=== PATIENT | male | born 1965 | race Caucasian/White ===

== ENCOUNTER 2024-11-11 09:45 | Emergency (ER) | payer BC, SELFPAY ==
[2024-11-11 10:10] VITALS: BP 115/75; PULSE 106; RESP 20; TEMP 36.4; O2SAT 99; BMI 23.3
--- NOTE | 2024-11-11 10:14 | XR_ITS ---
Examination: CT abdomen and pelvis without contrast. Coronal 3-D reconstructions. Sagittal 2-D reconstructions. Date and time of exam:November 11, 2024 1021 hours Comparison 03/13/2012 INDICATIONS: Nausea vomiting severe beginning 4:00 AM this morning CTDI: vol (mGy): 7.16 DLP: (mGycm): 8 oh Technique: Axial images of the abdomen have been obtained, 3 mm slice thickness Intravenous contrast material has not been administered. Low dose protocols were performed. One or more of the following dose reduction techniques were used; automated exposure control, adjustment of the mA and/or KV according to patient size, use of iterative reconstruction technique. Findings: Wall thickening distal esophagus with small retrocardiac gastric hernia Splenomegaly AP dimension 14 cm No focal liver lesions No gallstones No pancreatic or adrenal mass No renal or ureteral calculi, no hydronephrosis Normal appendix Colonic diverticulosis Mild fluid distended small bowel loops Colonic diverticulosis, no diverticulitis Urinary bladder intact Mild thickening of the rectal wall IMPRESSION: Wall thickening distal esophagus, consider reflux esophagitis Mild splenomegaly Normal appendix Mild small bowel ileus versus enteritis Mild proctitis pattern
--- NOTE | 2024-11-11 10:15 | PD.EDRME ---
Rapid Medical Screening Exam [facility] Arrival date/time: 11/11/24 09:45 59-year-old male presents to the emergency department for complaint of nausea vomiting, diarrhea abdominal pain Chief Complaint: Abdominal Pain Time Seen by Provider: 11/11/24 10:03 Vital signs: Vital Signs Temperature 97.6 F 11/11/24 10:10 Pulse Rate 106 H 11/11/24 10:10 Respiratory Rate 20 11/11/24 10:10 Blood Pressure 115/75 11/11/24 10:10 Pulse Oximetry (%) 99 11/11/24 10:10 Oxygen Delivery Method Room Air 11/11/24 10:10
[2024-11-11 10:33] LABS: Basophils # (Auto) 0.1 Thou/mm3 (0.0-0.2); Basophils % (Auto) 0 % (0-2.5); Eosinophils % (Auto) 0 % (0-10); Hematocrit 51.7 % (41.0-53.0); Immature Granulocytes % (Auto) 1 % (0-0); Immature Granulocytes Auto 0.09 Thou/mm3 (0.00-0.00); Lymphocytes # (Auto) 0.2 Thou/mm3 (1.0-4.8); Lymphocytes % (Auto) 1 % (10-50); Mean Corpuscular HGB Conc 34.8 g/dl (31.0-37.0); Mean Corpuscular Hemoglobin 29.7 pg (25.0-35.0); Mean Corpuscular Volume 85 fL (80-100); Monocytes # (Auto) 0.6 Thou/mm3 (0.0-0.8); Monocytes % (Auto) 4 % (0-12); Neutrophils # (Auto) 14.2 Thou/mm3 (1.8-7.7); Neutrophils % (Auto) 94 % (37-80); Nucleated Red Blood Cell % 0 /100 WBC (0); Platelet Count 253 Thou/mm3 (140-440); RDW Standard Deviation 38.1 fL (35.1-43.9); Red Blood Count 6.07 Miln/mm3 (4.50-5.90); White Blood Count 15.1 Thou/mm3 (3.8-10.6)
[2024-11-11] MEDS: METOCLOPRAMIDE INJ 5 MG/ML VIAL 2 ML 10 MG IM (10:53)
[2024-11-11 10:54] LABS: Alanine Aminotransferase 16 U/L (10-49); Albumin, Serum 5.1 gm/dL (3.5-5.0); Alkaline Phosphatase 88 U/L (46-116); Anion Gap 14 (7-16); Aspartate Amino Transferase 23 U/L (0-34); BUN/Creatinine Ratio 13 Ratio (12-20); Bilirubin,Total 0.9 mg/dL (0.3-1.2); Blood Urea Nitrogen 17 mg/dL (9-23); Calcium 9.7 mg/dL (8.3-10.6); Calcium (Corrected) 9.7 mg/dL (8.5-10.1); Carbon Dioxide 23.4 mMol/L (20.0-31.0); Chloride 106 mMol/L (98-107); Creatinine (Component) 1.3 mg/dL (0.6-1.3); Estimated Creatinine Clearance 72.9 mL/min (>60); Globulin 2.6 gm/dL (2.3-3.5); Glucose 150 mg/dL (74-106); Lipase 53 U/L (12-53); Osmolality,Calculated 289 (275-295); Potassium 4.6 mMol/L (3.4-5.1); Sodium 143 mMol/L (136-145); Total Protein 7.7 gm/dL (5.7-8.2); eGFR > 60 See Note
[2024-11-11] MEDS: LOPERAMIDE 2 MG CAPSULE 4 MG PO (10:55)
[2024-11-11 11:21] LABS: Collection Type, Urine Clean Catch; Squamous Epithelial Cell,Urine 0 /hpf (0-5)
[2024-11-11 11:44] LABS: Bilirubin,Urine Negative (Negative); Blood,Urine Negative (Negative); Color,Urine Yellow (Lt Yel-Yel); Culture Indicated,Urine Not Indicated; Glucose, Urine Negative (Negative); Ketones,Urine Trace (Negative); Leukocyte Esterase,Urine Negative (Negative); Nitrite,Urine Negative (Negative); Protein,Urine 2+ (Neg - Trace); RBC,Urine 6 /hpf (0-3); Specific Gravity,Urine 1.036 (1.001-1.035); Urobilinogen,Urine Negative mg/dL (0.0-1.0); WBC,Urine 3 /hpf (0-5)
[2024-11-11 12:10] LABS: Clarity,Urine Hazy (Clear/Hazy)
[2024-11-11 13:45] VITALS: BP 119/78; PULSE 97; RESP 18; TEMP 37.6; O2SAT 98
--- NOTE | 2024-11-11 14:09 | PD.EDADULT ---
ED General RME/HPI General Chief complaint: Abdominal Pain Stated complaint: abdominal vomiting/diarrhea x5 Time Seen by Provider: 11/11/24 10:03 Arrival date/time: 11/11/24 09:45 CC: Nausea vomit diarrhea HPI ongoing since 4 AM this morning, continue patient is a 20+ episodes of yellow watery stool. Patient denies any antibiotics in last 3 to 6 months. Patient states she has had episodes of this prior to this. Patient has a esophageal reconstruction and has a history of a GI bleed in the past. Patient denies fever chills shortness of breath difficulty breathing headache RME / HPI RME / HPI narrative: 11/11/24 09:45 59-year-old male presents to the emergency department for complaint of nausea vomiting, diarrhea abdominal pain Related Data Home Medications ?Medication ?Instructions ?Recorded ?Confirmed quetiapine 100 mg tablet (Seroquel) 100 mg PO HS #0 tabs 01/09/15 08/07/22 pantoprazole 40 mg tablet,delayed 1 tab PO QPM 11/23/21 08/07/22 release simvastatin 10 mg tablet 1 tab PO HS 11/23/21 08/07/22 allopurinol 100 mg tablet 100 mg PO QPM gout 08/07/22 08/07/22 clorazepate dipotassium 15 mg 15 mg PO QPM 08/07/22 08/07/22 tablet melatonin 10 mg tablet 10 mg PO QPM 08/07/22 08/07/22 Previous Rx's ?Medication ?Instructions ?Recorded ciprofloxacin HCl 500 mg tablet 500 mg PO BID #10 tabs 11/11/24 (Cipro) metronidazole 500 mg tablet 500 mg PO BID 7 days #14 tabs 11/11/24 ondansetron 4 mg disintegrating 4 mg PO Q8H #10 tabs 11/11/24 tablet prochlorperazine maleate 10 mg 10 mg PO BID PRN nausea and 11/11/24 tablet (Compazine) vomiting #14 tabs Allergies Allergy/AdvReac Type Severity Reaction Status Date / Time NSAIDS (Non-Steroidal Allergy Unknown CAN'T HAVE Verified 11/11/24 09:48 Anti-Inflamma D/T STOMACH RECONSTRUCTIVE SURGERY Penicillins Allergy Unknown Verified 11/11/24 09:48 Sulfa (Sulfonamide Allergy Unknown Verified 11/11/24 09:48 Antibiotics) articaine Allergy Swelling Verified 11/11/24 09:48 of Lip/Tongue/Throat Review of Systems Review of Systems Systems Reviewed: All systems reviewed, normal except as documented ED Exam Narrative Physical exam: [General: In mild discomfort but not in any acute distress Head normocephalic HEENT: Within acceptable limits Neck is supple nontender Chest equal chest rise nontender to palpation Respiratory: Clear to auscultation no wheezes crackles or rubs CV: Rate rhythm is regular no murmurs rubs or clicks Abdomen is soft nontender no masses hyperactive positive bowel sounds all 4 quadrants Back: No CVA tenderness no spinous process tenderness from cervical spine thoracic and lumbar spine Skin: Intact no petechiae rash induration ulceration or crepitus Extremities: Moving all extremity against resistance cap refill less than 2 seconds neurosensory intact Neuro: Awake alert oriented x3 Glascow coma 15 no focal deficits] Course Course Course Narrative: Reassessment of this patient at 1451, the patient has had no diarrhea or nausea and vomiting since the last assessment. At this time the patient be loaded with a liter of fluid and then discharged with metoclopramide and Zofran. If is worsening of symptoms to return the emergency room immediately for further evaluation. Quality Measures none Orders Category Date Time Status Saline [Insert IV] NOW Care 11/11/24 14:[address] abdomen pelvis wo con Stat Exams 11/11/24 10:14 Completed CBC Stat Lab 11/11/24 10:20 Completed Comprehensive Metabolic Panel Stat Lab 11/11/24 10:20 Completed Lipase Stat Lab 11/11/24 10:20 Completed UA, C/S IF [Urinalysis, C/S if Indicated] Stat Lab 11/11/24 11:19 Completed Loperamide [Imodium] Med 11/11/24 10:14 Discontinued 4 mg PO X1 ONE Metoclopramide Inj [Reglan Inj] Med 11/11/24 10:14 Discontinued 10 mg IM X1 ONE Ondansetron Inj [Zofran Inj] Med 11/11/24 14:08 Discontinued 4 mg IV X1 ONE Sodium Chloride 0.9% 1000 ml [Ns] 1,000 ml Med 11/11/24 14:05 Active IV 999 mls/hr Vital Signs Vital signs: Vital Signs Temperature 97.6 F 11/11/24 10:10 Pulse Rate 106 H 11/11/24 10:10 Respiratory Rate 20 11/11/24 10:10 Blood Pressure 115/75 11/11/24 10:10 Pulse Oximetry (%) 99 11/11/24 10:10 Oxygen Delivery Method Room Air 11/11/24 10:10 Discharge Plan Plan Patient Disposition: HOME (Self Care) Patient condition on transfer: Stable Prescriptions/Referrals Prescriptions/Med Rec: New ondansetron 4 mg tablet,disintegrating 4 mg PO Q8H Qty: 10 0RF prochlorperazine maleate [Compazine] 10 mg tablet 10 mg PO BID PRN (Reason: nausea and vomiting) Qty: 14 0RF ciprofloxacin HCl [Cipro] 500 mg tablet 500 mg PO BID Qty: 10 0RF metronidazole 500 mg tablet 500 mg PO BID 7 Days Qty: 14 0RF No Action quetiapine [Seroquel] 100 MG tablet 100 mg PO HS Qty: 0 simvastatin 10 mg tablet 1 tab PO HS pantoprazole 40 mg tablet,delayed release (DR/EC) 1 tab PO QPM allopurinol 100 mg tablet 100 mg PO QPM clorazepate dipotassium 15 mg tablet 15 mg PO QPM Patient Comments: TAKE 2 TABLETS BY MOUTH EVERY DAY AT BEDTIME NEEDED melatonin 10 mg Tablet 10 mg PO QPM Referrals: Sussy Juárez MD [Primary Care Provider] - In 1 week Problem List Clinical Impression: Enteritis, Nausea & vomiting, Diarrhea Patient/Caregiver Discharge Instructions Other Activity Instructions:: Rest and drink plenty of fluids take the medication as prescribed if there is worsening of symptoms return the emergency room immediately for further evaluation. Education Materials: How the Colon Works, ED Vomiting and Diarrhea ... Print Language: Mongolian Stand Alone Forms: Hedy Award Info., Patient Portal Info Letter MDM Clinical Information Provided by: patient Medical Records reviewed [facility] Meds/Rx considered, not ordered None Labs/Rad/Tests considered, not ordered None EKG EKG not done Labs Labs: interpreted by [facility] Lab(s) Interpretation(s): EKG shows leukocytosis of 15.1, H&H of 18.0 and 51.7 note this is hemoconcentrated. No thrombocytopenia CMP shows no electrolyte imbalances renal impairment glucose of 150 no transaminitis or T. bili elevation Urine spec gravity 1.0366 RBCs no other acute finding 9 indicating of a UTI. Imaging Imaging interpretation: interpreted by [facility] Imaging Interpretation(s): CT of the abdomen shows possible early ileus versus enteritis. Medication Administration(s) Medication Administration History Sodium Chloride (Ns) 1,000 mls @ 999 mls/hr IV .Q1H1M ONE Stop: 11/11/24 15:05 Last Admin: 11/11/24 14:36 Dose: 999 mls/hr Documented By: Discontinued Medications Loperamide HCl (Loperamide 2 Mg Capsule) 4 mg PO X1 ONE Stop: 11/11/24 10:15 Last Admin: 11/11/24 10:55 Dose: 4 mg Documented By: RD Metoclopramide HCl (Metoclopramide Inj 5 Mg/Ml Vial 2 Ml) 10 mg IM X1 ONE; Protocol Stop: 11/11/24 10:15 Last Admin: 11/11/24 10:53 Dose: 10 mg Documented By: RD Ondansetron HCl (Ondansetron Inj 2 Mg/Ml Inj 2 Ml) 4 mg IV X1 ONE; Protocol Stop: 11/11/24 14:09 Diagnosis Differential Diagnosis ED Complaint MDM: Diverticulitis diverticulosis ileus obstruction
[2024-11-11] MEDS: SODIUM CHLORIDE 0.9% 1000 ML 1,000 ML 999 ML IV (14:36)
[2024-11-11] MEDS: ONDANSETRON INJ 2 MG/ML INJ 2 ML 4 MG IV (15:07)
== END 2024-11-11 16:17 | disposition home or self-care (01) ==
PROVIDERS: Nurse Practitioner Primary Care; Emergency Provider Emergency Medicine; PCP Family Medicine
DX: K52.9 Noninfective gastroenteritis and colitis, unspecified (principal)
CPT/HCPCS: 36415; 74176; 80053; 81001; 83690; 85025; 96361; 96372; 96374; 99284; J2405; J2765; J7030; A9270